=== PATIENT | female | born 1970 | race Caucasian/White ===

== ENCOUNTER → 2018-12-13 | Outpatient (CLI) | payer OTHER ==
--- NOTE | 2018-12-15 13:58 | MM ---
Reason for exam: screening (asymptomatic). Last mammogram was performed 2 years and 7 months ago. History: Took hormonal contraceptives for 4 years. MG 3D Screening Mammo W/Cad Bilateral CC and MLO view(s) were taken. Prior study comparison: May 05, 2016, bilateral MG 3d screening mammo w/cad. June 24, 2014, bilateral MG diagnostic mammo w CAD IVETT. The breast tissue is extremely dense which could obscure a lesion on mammography. No significant changes when compared with prior studies. ASSESSMENT: Benign, BI-RAD 2 RECOMMENDATION: Routine screening mammogram of both breasts in 1 year.
== END | disposition home or self-care (01) ==
LOC: RADMAMWWP 10:32
PROVIDERS: ATTEND Obstetrics & Gynecology
DX: Z12.31 Encounter for screening mammogram for malignant neoplasm of breast (principal)
CPT/HCPCS: 77063; 77067

== ENCOUNTER → 2019-12-25 | Outpatient (CLI) | payer OTHER ==
--- NOTE | 2019-12-25 22:49 | CT ---
EXAMINATION TYPE: CT abdomen pelvis wo con DATE OF EXAM: 12/25/2019 COMPARISON: 09/05/2012 HISTORY: 49-year-old female with intermittent epigastric pain. Family history of pancreatic cancer. CT DLP: 1016.8 mGycm. Automated exposure control for dose reduction was used. TECHNIQUE: Contiguous axial scanning of the abdomen and pelvis without IV contrast. Coronal and sagit evelio reconstructions performed. FINDINGS: Heart normal size without pericardial effusion. Lung bases clear without pleural effusion. Tiny hiatal hernia. Stable vague 1.4 x 0.7 cm hypodensity within the inferior right liver lobe. Stability from 2011 sugge sts a benign etiology. Otherwise, noncontrast appearance of the gallbladder, adrenal glands, kidneys, spleen, pancreas show no gross abnormality. No dilated small bowel, free fluid, or free air allowing for noncontrast technique. No mesenteric or retroperitoneal lymphadenopathy identified Possible visualization of a very tiny caliber appendix, coronal image 42 versus mesenteric vessel. No secondary findings of acute appendicitis in the right lower quadrant. Mild stool burden. No pericolonic inflammatory change. Bladder not distended. Pelvic phleboliths. Uterus surgically absent. There may be mild pelvic floor r elaxation with some bulging laxity of the levator ani musculature. Ovaries are visualized. Bones: No osseous destructive process. IMPRESSION: 1. Note that lack of IV contrast decreases sensitivity and limits assessment of the solid abdominal viscera. 2. A vague 1.4 x 0.7 cm hypodensity inferior right liver lobe appears stable from 2011 compatible wi th a benign etiology. 3. Tiny hiatal hernia. Status post hysterectomy.
== END | disposition home or self-care (01) ==
LOC: RADCTMAIN 14:23
PROVIDERS: ATTEND Family Medicine
DX: K44.9 Diaphragmatic hernia without obstruction or gangrene (principal); Z90.710 Acquired absence of both cervix and uterus
CPT/HCPCS: 74176

== ENCOUNTER → 2020-01-08 | Outpatient (CLI) | payer OTHER ==
--- NOTE | 2020-01-08 14:01 | MM ---
Reason for exam: additional evaluation requested from abnormal screening. Last mammogram was performed less than 1 month ago. History: Took hormonal contraceptives for 4 years. Physical Findings: Nurse did not find any significant physical abnormalities on exam. MG 3D Work Up W/Cad LT Spot compression CC, spot compression MLO, and LM view(s) were taken of the left breast. Prior study comparison: December 31, 2019, bilateral MG 3d screening mammo w/cad. December 13, 2018, bilateral MG 3d screening mammo w/cad. The breast tissue is heterogeneously dense. This may lower the sensitivity of mammography. Left upper outer quadrant spiculated 1.0cm mass persist on additional views. Ultrasound will be performed attention 11cm from nipple. These results were verbally communicated with the patient and result sheet given to the patient on 01/08/20. ASSESSMENT: Incomplete: need additional imaging evaluation, BI-RAD 0 RECOMMENDATION: Ultrasound of the left breast. (upper outer quadrant)
--- NOTE | 2020-01-08 14:03 | USB ---
Reason for exam: additional evaluation requested from abnormal screening. History: Took hormonal contraceptives for 4 years. US Breast Workup Limited LT Left limited breast ultrasound including focal area of concern, retroareolar and axilla demonstrates no cystic or solid lesion seen. No definite sonographic correlate. These results were verbally communicated with the patient and result sheet given to the patient on 01/08/20. ASSESSMENT: Suspicious, BI-RAD 4 RECOMMENDATION: Stereotactic core biopsy of the left breast. (3D biopsy) PRELIMINARY REPORT CALLED AND FAXED TO DR. VANN ON 01/08/20.
== END | disposition home or self-care (01) ==
LOC: RADMAMWWP 07:48
PROVIDERS: ATTEND Family Medicine
DX: R92.8 Other abnormal and inconclusive findings on diagnostic imaging of breast (principal)
CPT/HCPCS: 77061; 77065

== ENCOUNTER → 2024-01-04 | Outpatient (CLI) | payer OTHER ==
[2024-01-04 17:01] LABS: Thyroid Peroxidase Antibodies 9.7 U/mL (0.0-33.0)
[2024-01-04 17:09] LABS: T4, Free (Free Thyroxine) 1.27 ng/dL (0.80-1.80)
== END | disposition home or self-care (01) ==
LOC: LABWHC1 08:48
PROVIDERS: ATTEND Family Medicine
DX: E03.9 Hypothyroidism, unspecified (principal); R51.9 Headache, unspecified
CPT/HCPCS: 36415; 82175; 82570; 83655; 83825; 84439; 84443; 84481; 86376; 86800

== ENCOUNTER 2024-11-21 07:25 | Day surgery (SDC) | payer BC ==
[2024-11-19 11:49] VITALS: BMI 39.4
[2024-11-21] MEDS ORDERED: LIDOCAINE 1% (10MG/ML) FOR IV START INTRADERMA PRN (07:28)
[2024-11-21 07:55] VITALS: TEMP 97.3
[2024-11-21] MEDS: IV FLUID CONTINUATION 1,000 ML IV ONE (08:08)
[2024-11-21] MEDS: LACTATED RINGERS 1,000 ML IV SCH (08:08)
[2024-11-21] MEDS ORDERED: LIDOCAINE 1% INJ 10MG/ML (20 ML MDV) ONE (08:24)
[2024-11-21] MEDS ORDERED: PROPOFOL 10 MG/ML 20 ML VIAL IV ONE (08:24)
--- NOTE | 2024-11-21 08:44 | P.PCN ---
Date of Procedure: 11/21/24 Procedure(s) Performed: Brief history: Patient is a pleasant 52-year-old white female scheduled for an elective upper endoscopy as well as colonoscopy as a part of evaluation of GERD, intermittent nausea vomiting and rectal bleeding for last few weeks duration. Procedure performed: Esophagogastroduodenoscopy with biopsy Colonoscopy Preoperative diagnosis: Chronic epigastric pain Rectal bleeding Anesthesia: MAC Procedure: After informed consent was obtained from the patient was brought into the endo scopy unit and IV sedation was administered by anesthesia under continuous monitoring. Initially upper endoscopy was done. The Olympus GF 160 video endoscope was inserted inserted into the mouth and esophagus intubated without any difficulty and was gradually advanced into the stomach and duodenum and carefully examined. The bulb and second part of the duodenum appeared normal. Biopsies were done from the duodenum to evaluate for celiac disease. The scope was then withdrawn into the stomach adequately insufflated with air and upon careful examination the antrum had patchy areas of erythema consistent with gastritis and biopsies were done from this area. Mucosa of the d body, cardia and fundus appeared normal. The scope was then withdrawn into the esophagus. Hiatal hernia noted. The GE junction was located at 35 cm to the incisors. It appeared regular with superficial erosions and mild ulceration consistent with LA grade C reflux esophagitis. Rest of the esophagus appeared normal. Patient tolerated the procedure well. At this time the patient continued to remain sedation. Initial digital rectal examination was normal. Olympus CF 160 video colonoscope was then inserted into the rectum and gradually advanced to the cecum without any difficulty. Careful examination was performed as the scope was gradually being withdrawn. The prep was excellent. The cecum, ascending colon, transverse colon, descending colon, sigmoid colon and rectum appeared normal. Katter sigmoid diverticulosis. Retroflexion was performed in the rectum and grade 2 internal hemorrhoid were noted. Patient tolerated the procedure well. Impression: 1. Upper endoscopy revealed linear erosions with 1 superficial ulceration at the GE junction consistent with LA grade C reflux esophagitis mild antral gastritis and small hiatal hernia 2. Colonoscopy revealed scattered small diverticulosis and grade 2 internal hemorrhoids Recommendations: Findings of this examination were discussed with the patient as well as her family. She was advised to follow-up with the biopsy results. Start omeprazole 20 mg daily and follow antireflux measures. Recommend high-fiber diet and taking fiber supplements and avoiding straining and constipation. Advised on a repeat colonoscopy in 10 years.
[2024-11-21 09:03] VITALS: BP 121/73; PULSE 68; RESP 16
== END 2024-11-21 09:30 | disposition home or self-care (01) ==
LOC: ORWHC2ENDO 07:25
PROVIDERS: ATTEND Internal Medicine Gastroenterology
DX: K21.00 Gastro-esophageal reflux disease with esophagitis, without bleeding (principal); K29.50 Unspecified chronic gastritis without bleeding; K25.9 Gastric ulcer, unspecified as acute or chronic, without hemorrhage or perforation; K31.89 Other diseases of stomach and duodenum; K44.9 Diaphragmatic hernia without obstruction or gangrene; K57.30 Diverticulosis of large intestine without perforation or abscess without bleeding; K64.1 Second degree hemorrhoids; K62.5 Hemorrhage of anus and rectum; F41.9 Anxiety disorder, unspecified; F32.A Depression, unspecified; E07.9 Disorder of thyroid, unspecified; Z90.710 Acquired absence of both cervix and uterus; Z88.1 Allergy status to other antibiotic agents; Z79.899 Other long term (current) drug therapy; Z79.890 Hormone replacement therapy
CPT/HCPCS: 45378; 43239; J2003; J2704; 88305